=== PATIENT | female | born 1970 | race Caucasian/White ===

== ENCOUNTER → 2023-06-17 | Outpatient (CLI) | payer BC | LOC: RAD 14:57 | DX: M51.16 Intervertebral disc disorders with radiculopathy, lumbar region (principal); M51.37 Other intervertebral disc degeneration, lumbosacral region ==

== ENCOUNTER → 2023-07-01 | Outpatient (CLI) | payer BC | LOC: RAD 16:58 | DX: R22.9 Localized swelling, mass and lump, unspecified (principal) | CPT/HCPCS: A9575 ==